=== PATIENT | male | born 1990 | race Two or more races ===

== ENCOUNTER 2023-06-14 08:08 | Emergency (ER) | payer MEDICAID, OTHER ==
[~2023-06-14] VITALS: Ht 175.3 cm; Wt 68.8 kg
[2023-06-14 08:34] VITALS: BP 118/65; PULSE 18; RESP 94; TEMP 97.8; O2SAT 97
[2023-06-14] MEDS ORDERED: BICT1TAB PO (08:37)
== END 2023-06-14 08:43 | disposition home or self-care (01) ==
LOC: ER 08:08
DX: Z76.0 Encounter for issue of repeat prescription (principal); Z21 Asymptomatic human immunodeficiency virus [HIV] infection status

== ENCOUNTER 2023-08-01 14:58 | Emergency (ER) | payer MEDICAID ==
[~2023-08-01] VITALS: Ht 175.3 cm; Wt 75.5 kg
[~2023-08-01 14:58] MED LIST: BICT1TAB PO
[2023-08-01 16:42] VITALS: BP 119/68; PULSE 96; RESP 16; TEMP 98.1; O2SAT 99
== END 2023-08-01 17:10 | disposition home or self-care (01) ==
LOC: ER 14:58
DX: B20 Human immunodeficiency virus [HIV] disease (principal); Z76.0 Encounter for issue of repeat prescription

== ENCOUNTER 2023-09-03 14:30 | Emergency (ER) | payer MEDICAID ==
[~2023-09-03] VITALS: Ht 175.3 cm; Wt 71.5 kg
[2023-09-03 17:49] LABS: Basophils # (auto) 0 10 ^3/uL (0-0.2); Basophils % (auto) 0.5 % (0.0-2.0); Eosinophils # (auto) 0.1 10 ^3/uL (0-0.8); Eosinophils % (auto) 0.9 % (0.0-7.0); Hematocrit 47.7 % (41.0-53.0); Hemoglobin 16.4 g/dL (13.5-17.5); Lymphocytes # (auto) 2.6 10 ^3/uL (0.4-5.4); Mean Corpuscular Hemoglobin 32.2 pg (28.0-32.0); Mean Corpuscular Hgb Conc. 34.4 g/dL (32.0-36.0); Mean Corpuscular Volume 93.8 fL (80.0-100.0); Monocytes # (auto) 0.5 10 ^3/uL (0-1.3); Monocytes % (auto) 6.1 % (0.0-12.0); Neutrophils # (auto) 4.7 10 ^3/uL (1.6-8.6); Neutrophils % (auto) 59.5 % (37.0-80.0); Nucleated Red Blood Cells % 0.6 %; Red Blood Cells 5.08 10^6/uL (4.5-5.90); Red Cell Distribution Width 12.4 % (11.8-14.3); White Blood Cell 7.9 10^3/uL (4.4-10.8)
[2023-09-03 18:09] LABS: Alanine Aminotransferase 15 U/L (7-40); Albumin 4.6 g/dL (3.2-4.8); Alkaline Phosphatase 70 U/L (46-116); Anion Gap 6 (5-15); Aspartate Aminotransferase 12 U/L (13-40); BUN/Creatinine Ratio 9.9 (10.0-20.0); Blood Urea Nitrogen 9 mg/dL (9-23); Calcium 9.8 mg/dL (8.5-10.1); Carbon Dioxide 27 mmol/L (20-30); Chloride 106 mmol/L (98-107); Glucose 104 mg/dL (74-106); Potassium 3.9 mmol/L (3.5-5.1); Sodium 139 mmol/L (136-145)
[2023-09-03 18:10] LABS: Bilirubin, Total 0.6 mg/dL (0.2-1.0); Total Protein 7.8 g/dL (5.7-8.2)
[2023-09-03] MEDS ORDERED: BICT1TAB PO (18:23)
[2023-09-03 18:44] VITALS: BP 139/92; PULSE 101; RESP 18; TEMP 99.3; O2SAT 95
== END 2023-09-03 18:43 | disposition home or self-care (01) ==
LOC: ER 14:30
DX: Z76.0 Encounter for issue of repeat prescription (principal); Z86.19 Personal history of other infectious and parasitic diseases; Z79.899 Other long term (current) drug therapy
CPT/HCPCS: 36415; 80053; 85025